=== PATIENT | male | born 1930 | race Caucasian/White ===

== ENCOUNTER 2017-05-23 19:34 | Emergency (ER) | payer MEDICARE, OTHER ==
[~2017-05-23] VITALS: Ht 182.9 cm; Wt 74.0 kg
[~2017-05-23 19:34] MED LIST: APIX5TAB PO; ASPI81TA82 PO; CENTCHW3 PO; CHOL1CAP6 PO; COZA100T PO; FISH120014 PO; SIMV20 PO; TOPR50TA PO
[2017-05-23 19:54] VITALS: BP 122/62; PULSE 64; RESP 18; TEMP 98.7; O2SAT 97
[2017-05-23] MEDS ORDERED: FURO80TA PO (20:26)
[2017-05-23] MEDS ORDERED: ASPI-516 CHEW (20:26)
[2017-05-23] MEDS ORDERED: ZOCO20TA PO (20:26)
[2017-05-23] MEDS ORDERED: POTA10CA PO (20:26)
[2017-05-23] MEDS ORDERED: APIX2.5T PO (20:26)
[2017-05-23] MEDS ORDERED: TRIA.1%T TOPICAL (20:26)
[2017-05-23] MEDS ORDERED: TOPR50TA PO (20:26)
[2017-05-23] MEDS ORDERED: LOSA100T PO (20:26)
[2017-05-23] MEDS ORDERED: AUGM875T3 PO (20:59)
--- NOTE | 2017-05-23 20:59 | PD ---
HPI Chief Complaint: ENT Complaint Time Seen by Provider: 20:29 Travel History International Travel<30 days: No Contact w/Intl Traveler<30days: No Traveled to known affect area: No History of Present Illness HPI This is an 87-year-old male with sore throat 2 weeks. He reports his doctor treated him with amoxicillin for 7 days which resolved his symptoms. Several days after stopping the amoxicillin the sore throat reemerged which prompted him to come in this evening. He reports he saw his PCP yesterday who prescribed him amoxicillin but the E prescription did not make it to [facility]. he denies fever chills. He reports pain with swallowing. Denies difficulty eating, drinking or swallowing secretions. No change in voice. Symptom severity is moderate. Aggravated by swelling. Alleviated by amoxicillin. PFSH Past Medical History Hx Anticoagulant Therapy: Yes AAA: Yes Atrial Fibrillation: Yes Cardiovascular Problems: Yes High Cholesterol: Yes Cerebrovascular Accident: Yes Diminished Hearing: Yes Hypertension: Yes Immunizations Current: No ?: Not Past Surgical History Appendectomy: Yes Cholecystectomy: Yes Eye Surgery: Yes (CATARACTS B/L EYES) Tonsillectomy: Yes Social History Alcohol Use: No (RARELY) Tobacco Use: No Substance Use: No Allergies-Medications (Allergen,Severity, Reaction): Coded Allergies: No Known Allergies (Verified Adverse Reaction, Unknown, 05/23/17) Reported Meds & Prescriptions Reported Meds & Active Scripts Active Reported Aspirin 81 Mg Chew 81 Mg CHEW DAILY Triamcinolone Topical (Triamcinolone Acetonide) 0.1% Cream 1 Applic TOPICAL BID Losartan (Losartan Potassium) 100 Mg Tab 100 Mg PO DAILY Toprol XL (Metoprolol Succinate) 50 Mg Tab 50 Mg PO DAILY Zocor (Simvastatin) 20 Mg Tab 20 Mg PO DAILY Eliquis (Apixaban) 2.5 Mg Tab 2.5 Mg PO BID Potassium Chloride ER (Potassium Chloride) 10 Meq Cap 10 Meq PO BID Furosemide 80 Mg Tab 80 Mg PO DAILY Review of Systems Except as stated in HPI: all other systems reviewed are Neg General / Constitutional: No: Fever Eyes: No: Visual changes HENT: Positive: Sore Throat Cardiovascular: No: Chest Pain or Discomfort Respiratory: No: Shortness of Breath Gastrointestinal: No: Abdominal Pain Genitourinary: No: Dysuria Musculoskeletal: No: Pain Skin: No Rash Physical Exam Narrative GENERAL: Alert and well-appearing 87-year-old male SKIN: Warm and dry. HEAD: Normocephalic. EYES: No injection or drainage. Ear/nose/throat: Notable pharyngeal erythema, no tonsillar hypertrophy or exudate. Uvula is midline. Airways patent. Normal phonation NECK: Supple, trachea midline. Mild submandibular lymphadenopathy CARDIOVASCULAR: Regular rate and rhythm RESPIRATORY: Breath sounds equal bilaterally. No accessory muscle use. GASTROINTESTINAL: Abdomen soft, non-tender, nondistended. MUSCULOSKELETAL: No cyanosis, or edema. BACK: No CVA tenderness. Data Data Last Documented VS Vital Signs Date Time Temp Pulse Resp B/P (MAP) Pulse Ox O2 Delivery O2 Flow Rate FiO2 05/23/17 19:54 98.7 64 18 122/62 (82) 97 MDM Medical Decision Making Medical Screen Exam Complete: Yes Emergency Medical Condition: Yes Differential Diagnosis Strep pharyngitis, viral pharyngitis, URI Narrative Course 87-year-old male here with pharyngitis. He is nontoxic appearing. Diagnosis Primary Impression: Pharyngitis Qualified Codes: J02.9 - Acute pharyngitis, unspecified Referrals: Primary Care Physician Patient Instructions: General Instructions Departure Forms: Tests/Procedures Additional Instructions: [facility] next to [facility] [place] is open till midnight and on weekends. Antibiotics as directed. Tylenol or ibuprofen as needed for pain. Scripts Amoxicillin-Clavulanate (Augmentin) 875-125 Mg Tab 1 TAB PO BID for Infection, #20 TAB 0 Refills Prov: Anastasia Ackerman 05/23/17 Disposition: 01 DISCHARGE HOME Condition: Stable Anastasia Ackerman May 23, 2017 20:59
[2017-05-23] MEDS ORDERED: AMOXICILLIN/CLAVULANATE K 875 MG TAB PO ONE (21:00)
== END 2017-05-23 21:26 | disposition home or self-care (01) ==
LOC: PHEFT 19:34
DX: J02.9 Acute pharyngitis, unspecified (principal); Z79.01 Long term (current) use of anticoagulants; I48.91 Unspecified atrial fibrillation; E78.00 Pure hypercholesterolemia, unspecified; H91.90 Unspecified hearing loss, unspecified ear; I10 Essential (primary) hypertension; I71.4 Abdominal aortic aneurysm, without rupture
CPT/HCPCS: 99283